=== PATIENT | female | born 1965 | race Two or more races ===

== ENCOUNTER 2017-10-28 19:27 | Inpatient (IN) | payer OTHER ==
[~2017-10-28] VITALS: Ht 160 cm; Wt 65.3 kg
[2017-10-28 20:00] VITALS: BP 122/72
[2017-10-28] MEDS ORDERED: IBUPROFEN 200 MG TAB PO PRN (20:00)
[2017-10-28 20:29] LABS: BASOPHILS # (AUTO) 0.1 (0.0-0.1); BASOPHILS % 0.8 % (0.0-1.0); EOSINOPHILS # (AUTO) 0.3 (0.0-0.4); EOSINOPHILS % 4.3 % (0.0-6.0); HEMATOCRIT 35.4 % (34.2-44.1); HEMOGLOBIN 11.7 g/dL (12.0-16.0); LYMPHOCYTES # (AUTO) 1.8 (1.0-3.2); LYMPHOCYTES % 28.6 % (18.0-39.1); MEAN CORPUSCULAR HEMOGLOBIN 30.5 pg (28-32); MEAN CORPUSCULAR HGB CONC 33.1 g/dL (31-35); MEAN CORPUSCULAR VOLUME 92.2 fL (81-99); MONOCYTES # (AUTO) 0.5 (0.2-0.8); MONOCYTES % 8.1 % (4.4-11.3); NEUTROPHILS # (AUTO) 3.7 (2.1-6.9); NEUTROPHILS % 57.9 % (38.7-80.0); PLATELET COUNT 211 x10e3/uL (140-360); RED BLOOD COUNT 3.84 x10e6/uL (3.6-5.1); RED CELL DISTRIBUTION WIDTH 11.8 % (11.7-14.4)
[2017-10-28] MEDS ORDERED: HYDROCODONE/APAP 10MG-325MG TAB PO PRN (20:30)
[2017-10-28] MEDS ORDERED: SODIUM CHLORIDE 0.9% 250ML 250 ML ONE (20:47)
[2017-10-28 20:49] LABS: ALANINE AMINOTRANSFERASE 16 IU/L (0-55); ALBUMIN 3.5 g/dL (3.5-5.0); ALBUMIN/GLOBULIN RATIO 0.9 (0.8-2.0); ALKALINE PHOSPHATASE 67 IU/L (40-150); ANION GAP 10.7 mmol/L (8-16); BLOOD UREA NITROGEN 11 mg/dL (7-26); BUN/CREATININE RATIO 16 (6-25); CALCIUM 9.1 mg/dL (8.4-10.2); CARBON DIOXIDE 27 mmol/L (22-29); CHLORIDE 105 mmol/L (98-107); CREATININE, SERUM 0.68 mg/dL (0.57-1.11); EST GLOMERULAR FILTRATION RATE > 60 ML/MIN (60-); GLUCOSE 101 mg/dL (74-118); POTASSIUM 3.7 mmol/L (3.5-5.1); SODIUM 139 mmol/L (136-145)
[2017-10-28] MEDS: CLINDAMYCIN 600MG/D5W 50ML 50 ML IV SCH (21:12)
[2017-10-28] MEDS: NEOMYCIN/POLYMYXIN/BACITRACIN 15 GM TUBE TOP SCH (21:13)
[2017-10-29] VITALS (8 sets, daily range): BP systolic 100–119; BP diastolic 55–71
[2017-10-29] MEDS: CLINDAMYCIN 600MG/D5W 50ML 50 ML IV SCH ×4 (05:09→21:27)
[2017-10-29] MEDS: NEOMYCIN/POLYMYXIN/BACITRACIN 15 GM TUBE TOP SCH ×2 (09:22→21:27)
[2017-10-29] MEDS: DAPTOMYCIN 400 MG in SODIUM CHLORIDE 0.9% 100 ML IV SCH (12:56)
--- NOTE | 2017-10-29 14:14 | History and Physical ---
CHIEF COMPLAINT: Infection of the left arm after trauma, failed oral antibiotic. HISTORY OF PRESENT ILLNESS: This is a very pleasant 52-year-old female, no past medical history. Patient on Monday, while leaving her car, slipped and fell on her left arm, which led to an open wound and scraping. The patient took oral antibiotic for 2 days, but the arm continued to get red and swollen and painful. The patient became really bad, had to come to the emergency room, where she was admitted. Patient was started on IV clindamycin. She got 2 doses so far, and she still thinks the arm is about the same, still red and swollen and painful. PAST MEDICAL HISTORY: She denies. PAST SURGICAL HISTORY: She had . ALLERGIES: NKA. SOCIAL HISTORY: There is no smoking, drug abuse, alcohol abuse. FAMILY HISTORY: Denies. REVIEW OF SYSTEMS GENERALLY: No fever, no chills, no nausea, no vomiting, no diarrhea. GI: Negative. : Negative. SKIN: There is no other rash. JOINTS: Negative. ALL SYSTEMS: Within normal limits. LABORATORY DATA: Reviewed. Sodium 139, potassium 3.7, creatinine 0.68. Her glucose is 101. White count 6.33, hemoglobin 11. PHYSICAL EXAMINATION GENERAL: She is currently alert, oriented, does not seem to be in acute distress. VITAL SIGNS: Stable. Currently afebrile. HEENT: She is normocephalic, does not appear icteric. NECK: Supple. No JVD, no lymphadenopathy, no thyromegaly. CHEST: Clear bilaterally. HEART: S1 and S2. No S3 or S4, no murmur. ABDOMEN: Soft. Bowel sounds present. No tenderness. EXTREMITIES: The left arm: There is erythema. There is edema. There is an abrasion on her skin, and there is yellow crust on it. It is about 4 x 4 cm. IMPRESSION: Cellulitis of the arm after a fall and injury and abrasion of the skin. Failed oral antibiotic. Failing clindamycin. Will switch her to daptomycin. Will see how she is going to do tomorrow. The patient is really eager to go home. We may have to finish the course of treatment as an outpatient with intravenous antibiotic. In the meantime, will keep the arm elevated, local Neosporin to the area. Recheck CBC, recheck chem panel. Job#: [id number] EV
[2017-10-29] MEDS: IBUPROFEN 400 MG TAB PO PRN (16:59)
[2017-10-29] MEDS ORDERED: CLINDAMYCIN 600MG/D5W 50ML 50 ML IV SCH ×2 (17:00→17:15)
[2017-10-30] VITALS (7 sets, daily range): BP systolic 101–134; BP diastolic 58–82
[2017-10-30] MEDS: CLINDAMYCIN 600MG/D5W 50ML 50 ML IV SCH ×3 (06:58→22:15)
[2017-10-30] MEDS: NEOMYCIN/POLYMYXIN/BACITRACIN 15 GM TUBE TOP SCH ×2 (09:50→21:00)
[2017-10-30] MEDS ORDERED: GADOBENATE DIMEGLUMINE 1 ML IV ONE (10:44)
[2017-10-30] MEDS: IBUPROFEN 400 MG TAB PO PRN ×2 (10:45→22:15)
--- NOTE | 2017-10-30 10:56 | Diagnostic Imaging Report ---
PROCEDURE:X-RAY LEFT ELBOW, COMPLETE COMPARISON:None. INDICATIONS:ELBOW PAIN/SWELLING FINDINGS: No acute, displaced fracture or dislocation. Joint space is well-maintained. No joint effusion. No focal soft tissue abnormality. CONCLUSION: No acute osseous abnormality. Dictated by: Mati Escalante M.D. on 10/30/2017 at 10:57 Electronically approved by: Mati Escalante M.D. on 10/30/2017 at 10:57
[2017-10-30] MEDS: DAPTOMYCIN 400 MG in SODIUM CHLORIDE 0.9% 100 ML IV SCH (12:41)
[2017-10-30] MEDS ORDERED: [UNRECOGNIZED DRUG - OTHER] IV ONE (21:38)
[2017-10-30] MEDS ORDERED: CLINDAMYCIN IV ONE (21:38)
[2017-10-30] MEDS ORDERED: SODIUM CHLORIDE 0.9% 250ML 250 ML ONE (21:48)
[2017-10-31 06:14] VITALS: BP 133/88
[2017-10-31] MEDS: CLINDAMYCIN 600MG/D5W 50ML 50 ML IV SCH (06:24)
[2017-10-31 07:37] VITALS: BP 115/67
[2017-10-31 08:00] VITALS: BP 115/67
--- NOTE | 2017-10-31 08:28 | Diagnostic Imaging Report ---
TECHNIQUE: Magnetic resonance imaging of the LEFT ELBOW was performed WITH and WITHOUT injected contrast, 15 cc of intravenous MultiHance. The coronal images are slightly oblique in orientation. HISTORY: Cellulitis, pain and swelling, open wound, medial COMPARISON: None available FINDINGS: Bone and Bone Marrow: No focal or infiltrative bone marrow replacing abnormality. No acute fracture. Joints: Articular cartilage: Low-grade diffuse erosion. Fluid: No effusion. Soft Tissues: Ligaments and Tendons: Medial Ligament Complex: Intact. Common Flexor Tendon Group: Intact. Common Extensor Tendon Group: Intact. Distal Biceps Tendon: Intact. Brachialis Tendon: Intact. Distal Triceps Tendon: Intact, minimal intrasubstance degeneration near the olecranon insertion. Ulnar nerve: Normal, and in groove. Other: Mild posterior medial superficial soft tissue edema, without a drainable fluid collection. IMPRESSION: 1. Findings compatible with reported history of cellulitis. 2. No soft tissue abscess. 3. No osteomyelitis. Signed by: Dr. Mickey Chapa D.O., M.M.M. on 10/31/2017 8:24 AM
[2017-10-31] MEDS: NEOMYCIN/POLYMYXIN/BACITRACIN 15 GM TUBE TOP SCH (09:00)
[2017-10-31] MEDS ORDERED: CLEOCIN HCL150 MG PO (10:29)
--- NOTE | 2017-10-31 10:39 | Discharge Summary ---
This is a 52-year-old [place] lady who was admitted to [facility] through Dr. Kim for complaint of pain of the left lateral side of the elbow. Apparently, the patient fell in a parking lot and had some abrasions against the asphalt. The pain and redness increased in addition to the swelling. Therefore, the patient sought medical assistance. The patient was admitted on 10/30/2017. The arm seemed pink and swollen a little bit when I saw her, and she did have some pain. Orthopedics was consulted, and the impression was superficial wound care is appropriate for this trauma, and no surgical need as far as orthopedic point of view. X-ray of the elbow came back negative. MR of the elbow came back negative. She never spiked a fever. The patient's white count was 6.33, hemoglobin 11.7, platelets 211. Creatinine is 0.08. No drainage of any kind to be cultured. Patient treated with clindamycin and daptomycin. Overall improved. Received local care. The patient will be discharged home today 10/31/2017. Remove all the lines. Continue with home health. We provided prescription for clindamycin 300 mg p.o. q.8 h. for 5 days. The patient can follow up with infectious disease. The patient is being discharged in fair and stable condition. Dictated by: PAYAL Samaniego AYAAN KIM MD Job#: [id number]
== END 2017-10-31 10:45 | disposition home or self-care (01) | DRG 603 ==
LOC: IMCU 19:27 → OBSVTOIN 10-30 11:10 → MED/SURG2 10-30 18:01
PROVIDERS: ADMIT Internal Medicine Infectious Disease; ATTEND Internal Medicine Infectious Disease
DX: L03.114 Cellulitis of left upper limb (principal); S50.312A Abrasion of left elbow, initial encounter
CPT/HCPCS: 36415; 80053; 85025; 93005; G0378; J7050

== ENCOUNTER → 2018-06-15 | Day surgery (SDC) | payer OTHER ==
[2018-06-14 16:54] LABS: BASOPHILS # (AUTO) 0.1 (0.0-0.1); BASOPHILS % 0.7 % (0.0-1.0); EOSINOPHILS # (AUTO) 0.2 (0.0-0.4); EOSINOPHILS % 2.2 % (0.0-6.0); HEMATOCRIT 39.8 % (34.2-44.1); HEMOGLOBIN 13.1 g/dL (12.0-16.0); LYMPHOCYTES # (AUTO) 2.3 (1.0-3.2); LYMPHOCYTES % 33.7 % (18.0-39.1); MEAN CORPUSCULAR HEMOGLOBIN 30.4 pg (28-32); MEAN CORPUSCULAR HGB CONC 32.9 g/dL (31-35); MEAN CORPUSCULAR VOLUME 92.3 fL (81-99); MONOCYTES # (AUTO) 0.5 (0.2-0.8); MONOCYTES % 7.8 % (4.4-11.3); NEUTROPHILS # (AUTO) 3.8 (2.1-6.9); NEUTROPHILS % 55.3 % (38.7-80.0); PLATELET COUNT 240 x10e3/uL (140-360); RED BLOOD COUNT 4.31 x10e6/uL (3.6-5.1); RED CELL DISTRIBUTION WIDTH 11.3 % (11.7-14.4)
[2018-06-14 17:09] LABS: ANION GAP 11.4 mmol/L (8-16); BLOOD UREA NITROGEN 11 mg/dL (7-26); BUN/CREATININE RATIO 14 (6-25); CALCIUM 10.2 mg/dL (8.4-10.2); CARBON DIOXIDE 29 mmol/L (22-29); CHLORIDE 103 mmol/L (98-107); CREATININE, SERUM 0.76 mg/dL (0.57-1.11); EST GLOMERULAR FILTRATION RATE > 60 ML/MIN (60-); GLUCOSE 96 mg/dL (74-118); POTASSIUM 4.4 mmol/L (3.5-5.1); SODIUM 139 mmol/L (136-145)
[~2018-06-15] MED LIST: BUPIVACAINE 0.25%/EPI 30ML SDV INJ ONE; CEPHALEXIN500 MG PO; CLEOCIN HCL150 MG PO; DEXAMETHASONE SOD PHOS INJ 4 MG/ML VIAL ONE; FENTANYL CITRATE/PF 100MCG/2 ML INJ ONE; LIDOCAINE HCL 1% LOCAL INJ 20 ML VIAL ONE; LIDOCAINE HCL 2% LOCAL INJ 5 ML SDV VIAL INJ ONE; LIDOCAINE JELLY 2% 10ML URO-JET ONE; MIDAZOLAM HCL 2 MG/2 ML VIAL ONE; ONDANSETRON HCL INJ 2 MG/ML VIAL ONE; PROPOFOL IV EMULSION 10 MG/ML 20 ML VIAL ONE; SEVOFLURANE INHAL SOLN 250 ML PEN BTL ONE
--- OUTSIDE RECORDS SUMMARY | 2018-06-15 09:59 | XMS REPORT ---
[facility] Address Unknown Phone Unavailable Care Team Providers Care Mental Health Orderly Name Role Phone AYAAN KIM Unavailable Unavailable Problems This patient has no known problems. Allergies, Adverse Reactions, Alerts This patient has no known allergies or adverse reactions. Medications This patient has no known medications. Results Test Description Test Time Test Comments Text Results Atomic Results Result Comments ELBOW LEFT COMPLETE [place] [address] Patient Name: ANMOL JOE MR #: [id number] : 1965 Age/Sex: 52/F Req #: [id number] Adm Physician: AYAAN KIM MD Ordered by: VAIBHAV HERNANDEZ Report #: [id number] Location: [facility], [place] Room/Bed: [place] [address] Procedure: [id number] DX/ELBOW LEFT COMPLETE Exam Date: 10/30/17 Exam Time: 1040 REPORT STATUS: Signed PROCEDURE: X-RAY LEFT ELBOW, COMPLETE COMPARISON: None. INDICATIONS: ELBOW PAIN/SWELLING FINDINGS: No acute, displaced fracture or dislocation. Joint space is well-maintained. No joint effusion. No focal soft tissue abnormality. CONCLUSION: No acute osseous abnormality. Dictated by: Camille Matthews M.D. on 10/30/2017 at 10:57 Electronically approved by: Camille Matthews M.D. on 10/30/2017 at 10:57 Dictated By: CAMILLE MATTHEWS MD 56 Transcribed By: SAMUEL on 10/30/171056 COPY TO: VAIBHAV HERNANDEZ MRI ELBOW LEFT WOW [place] [address] Patient Name: ANMOL JOE MR #: [id number] : 1965 Age/Sex: 52/F Req #: [id number] Adm Physician: AYAAN KIM MD Ordered by: VAIBHAV HERNANDEZ Report #: [id number] Location: MED/SURG2 Room/Bed: [facility] Procedure: [id number] MRI/MRI ELBOW LEFT WOW Exam Date: Exam Time: REPORT STATUS: Signed TECHNIQUE: Magnetic resonance imaging of the LEFT ELBOW was performed WITH and WITHOUT injected contrast, 15 cc of intravenous MultiHance. The coronal images are slightly oblique in orientation. HISTORY: Cellulitis, pain and swelling, open wound, medial COMPARISON: None available FINDINGS: Bone and Bone Marrow: No focal or infiltrative bone marrow replacing abnormality. No acute fracture. Joints: Articular cartilage: Low-grade diffuse erosion. Fluid: No effusion. Soft Tissues: Ligaments and Tendons: Medial Ligament Complex: Intact. Common Flexor Tendon Group: Intact. Common Extensor Tendon Group: Intact. Distal Biceps Tendon: Intact. Brachialis Tendon: Intact. Distal Triceps Tendon: Intact, minimal intrasubstance degeneration near the olecranon insertion. Ulnar nerve: Normal, and in groove. Other: Mild posterior medial superficial soft tissue edema, without a drainable fluid collection. IMPRESSION: 1. Findings compatible with reported history of cellulitis. 2. No soft tissue abscess. 3. No osteomyelitis. Signed by: Dr. Kelli Chapa D.O., M.M.M. on 10/31/2017 8:24 AM Dictated By: KELLI CHAPA DO 3 Transcribed By: JUNIE on 10/31/17823 COPY TO: VAIBHAV HERNANDEZ
--- NOTE | 2018-06-15 15:10 | Operative Report ---
DATE OF PROCEDURE: June 15, 2018 PREOPERATIVE DIAGNOSIS: Thrombosed hemorrhoid. POSTOPERATIVE DIAGNOSIS: Thrombosed hemorrhoid. OPERATION PERFORMED: Hemorrhoidectomy. ANESTHESIA: General. COMPLICATIONS: None. ESTIMATED BLOOD LOSS: Minimal. DESCRIPTION OF PROCEDURE: With the patient lying in bed in the lithotomy position under good general anesthesia, the perineum was prepped with Betadine solution and draped in the usual manner. There was a large thrombosed, partially prolapsing hemorrhoid on the left side, extending from about the 1 o'clock position to about the 6 o'clock position. The rest of the examination did not reveal any significant internal hemorrhoids. The whole area was then infiltrated with 1/4 percent Marcaine with epinephrine. Some of the excess skin was then removed from the thrombosed, ulcerated hemorrhoid, and multiple clots were then slowly and carefully resected from the area and totally and completely removed. Some of the excess skin was then resected. Once this was done, hemostasis was ascertained and all of the clots were completely removed. A Gelfoam pack impregnated with Xylocaine was placed. The dressing was applied. The sponge, lap and needle count was correct. The patient tolerated the procedure well and returned to the recovery room in stable condition. Job#: [id number] EV
[2018-06-15 15:15] VITALS: BP 118/80
== END | disposition home or self-care (01) ==
LOC: OR 09:57
PROVIDERS: ATTEND Surgery
DX: K64.5 Perianal venous thrombosis (principal); Z01.810 Encounter for preprocedural cardiovascular examination; Z01.812 Encounter for preprocedural laboratory examination
CPT/HCPCS: 36415; 46320; 80048; 81025; 85025; 93005; J1100; J2001 ×2; J2250; J2405; J2704

== ENCOUNTER → 2018-08-23 | Outpatient (CLI) | payer BC ==
[~2018-08-23] MED LIST changes: -BUPIVACAINE 0.25%/EPI 30ML SDV INJ ONE; -DEXAMETHASONE SOD PHOS INJ 4 MG/ML VIAL ONE; -FENTANYL CITRATE/PF 100MCG/2 ML INJ ONE; -LIDOCAINE HCL 1% LOCAL INJ 20 ML VIAL ONE; -LIDOCAINE HCL 2% LOCAL INJ 5 ML SDV VIAL INJ ONE; -LIDOCAINE JELLY 2% 10ML URO-JET ONE; -MIDAZOLAM HCL 2 MG/2 ML VIAL ONE; -ONDANSETRON HCL INJ 2 MG/ML VIAL ONE; -PROPOFOL IV EMULSION 10 MG/ML 20 ML VIAL ONE; -SEVOFLURANE INHAL SOLN 250 ML PEN BTL ONE
--- NOTE | 2018-08-23 10:04 | Diagnostic Imaging Report ---
EXAMINATION: Transvaginal ultrasound. CLINICAL INDICATION: Dysfunctional uterine bleeding 52-year-old female, , last menstrual period 08/04/2018 COMPARISON: None available DISCUSSION: Transverse and sagittal transvaginal images were obtained of the pelvis with supplemental transabdominal images. The uterus is anteflexed and normal in size measuring 8.9 x 3.8 x 4.9 cm. The endometrial stripe is homogeneous, normal in thickness and measures 0.8 centimeters. Multiple cervical both hands cysts are identified. The ovaries are normal in size and echogenicity. The right ovary measures 2.9 x 1.1 x 1.6 cm centimeters. The left ovary measures 2.5 x 1.4 x 2 centimeters and contains a dominant follicle measuring 1.4 x 0.9 x 0.9 cm.. Trace free pelvic fluid. IMPRESSION: Trace free pelvic fluid is likely physiologic. Otherwise unremarkable pelvic ultrasound. Signed by: Dr. Mati Escalante M.D. on 08/23/2018 10:01 AM
== END ==
LOC: US 08:34
PROVIDERS: ATTEND Family Medicine
DX: N93.8 Other specified abnormal uterine and vaginal bleeding (principal)
CPT/HCPCS: 76830; 76856